=== PATIENT | male | born 1950 | race Caucasian/White ===

== ENCOUNTER 2018-05-01 10:39 | Outpatient (CLI) | payer MEDICARE, OTHER ==
--- NOTE | 2018-05-01 12:51 | RAD ---
RIGHT SHOULDER 3 VIEWS: History Acute right shoulder pain. FINDINGS/IMPRESSION: No fracture, dislocation, or bony destruction is seen. There are mild degenerative changes in the ac romioclavicular joint. 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 POS: OFF
== END 2018-05-01 10:40 | disposition home or self-care (01) ==
LOC: NAV RAD 10:39
PROVIDERS: ATTEND Nurse Practitioner Adult Health
DX: M25.511 Pain in right shoulder (principal); M19.011 Primary osteoarthritis, right shoulder; M75.31 Calcific tendinitis of right shoulder